=== PATIENT | female | born 1955 | race Caucasian/White ===

== ENCOUNTER → 2024-07-21 08:57 | Outpatient (REF) | payer MEDICARE, OTHER, SELFPAY | LOC: HWRAD 08:57 | PROVIDERS: ATTENDING PHYSICIAN Family Medicine | DX: R10.13 Epigastric pain (principal); N13.30 Unspecified hydronephrosis | CPT/HCPCS: 76700; 93975 ==

== ENCOUNTER → 2025-01-06 17:09 | Outpatient (REF) | payer MEDICARE, OTHER, SELFPAY | LOC: WDC 17:09 | PROVIDERS: ATTENDING PHYSICIAN Family Medicine | DX: Z12.31 Encounter for screening mammogram for malignant neoplasm of breast (principal) | CPT/HCPCS: 77063; 77067 ==

== ENCOUNTER → 2025-04-08 18:12 | Outpatient (REF) | payer MEDICARE, OTHER, SELFPAY | LOC: RAD 18:12 | PROVIDERS: ATTENDING PHYSICIAN Family Medicine | DX: J18.9 Pneumonia, unspecified organism (principal) | CPT/HCPCS: 71046 ==

== ENCOUNTER → 2025-06-15 14:47 | Outpatient (REF) | payer MEDICARE, OTHER, SELFPAY | LOC: RAD 14:47 | PROVIDERS: ATTENDING PHYSICIAN Family Medicine | DX: M81.0 Age-related osteoporosis without current pathological fracture (principal); N26.1 Atrophy of kidney (terminal) | CPT/HCPCS: 76775; 77080 ==

== ENCOUNTER → 2025-07-21 16:05 | Outpatient (REF) | payer MEDICARE, OTHER, SELFPAY | LOC: RAD 16:05 | PROVIDERS: ATTENDING PHYSICIAN Internal Medicine; FAMILY PHYSICIAN Family Medicine; OTHER PHYSICIAN Internal Medicine | DX: R10.9 Unspecified abdominal pain (principal); J18.9 Pneumonia, unspecified organism | CPT/HCPCS: 71250; 74177; Q9967 ==